=== PATIENT | female | born 1990 | race Caucasian/White ===

== ENCOUNTER 2019-04-06 05:45 | Inpatient (IN) | payer BC ==
[~2019-04-06] VITALS: Ht 167.7 cm; Wt 100.6 kg
[2019-04-06] VITALS (35 sets, daily range): BP systolic 110–150; BP diastolic 54–99
[2019-04-06] MEDS ORDERED: PREN1TAB79 PO (05:50)
[2019-04-06] MEDS ORDERED: OXYTOCIN/NORMAL SALINE 500 ML IV SCH ×2 (05:53→15:42)
--- NOTE | 2019-04-06 05:55 | NUR ---
JAMSHID HUNTER presented to unit via ambulation from ED, accompanied by SO, with c/o INDUCTION. JAMSHID HUNTER weighed, gowned, voided, and to bed. EFHM and TOCO applied, VS taken. JAMSHID HUNTER oriented to bed controls, call light, TV, heat, and A/C controls.
[2019-04-06] MEDS ORDERED: MINERAL OIL CONCENTRATE 99.9% 15 ML UDC TOP PRN (06:00)
[2019-04-06] MEDS ORDERED: D5 LR IV SOLUTION 1,000 ML IV ONE (06:03)
[2019-04-06] MEDS: D5 LR IV SOLUTION 1,000 ML IV SCH ×2 (06:30→13:37)
[2019-04-06] MEDS: CATHETER FLUSH 10 ML SYR IV SCH ×2 (06:51→22:32)
[2019-04-06 07:10] LABS: BASOPHILS % (AUTO) 0 % (0-10); EOSINOPHILS % (AUTO) 0 % (0-10); HEMATOCRIT 34 % (35-52); HEMOGLOBIN 11.7 G/DL (11.5-16.0); LYMPHOCYTES # (AUTO) 1.5 X 10^3 (1.0-4.0); LYMPHOCYTES % (AUTO) 15 % (12-44); MEAN CORPUSCULAR HEMOGLOBIN 29 PG (25-34); MEAN CORPUSCULAR HGB CONC 34 G/DL (32-36); MEAN CORPUSCULAR VOLUME 84 FL (80-99); MEAN PLATELET VOLUME 9.6 FL (7.4-10.4); MONOCYTES # (AUTO) 0.8 X 10^3 (0.0-1.0); MONOCYTES % (AUTO) 8 % (0-12); NEUTROPHILS # (AUTO) 7.5 X 10^3 (1.8-7.8); NEUTROPHILS % (AUTO) 77 % (42-75); PLATELET COUNT 228 10^3/uL (130-400); RED CELL DISTRIBUTION WIDTH 12.8 % (10.0-14.5); WHITE BLOOD COUNT 9.8 10^3/uL (4.3-11.0)
[2019-04-06] MEDS ORDERED: SUFENTA 0.6MCG/ML BUPIVA 0.125 100 ML ONE (07:27)
--- NOTE | 2019-04-06 08:07 | NUR ---
DR TREVINO NOTIFIED OF UNABLE TO REACH CERVIX. DR TREVINO AT BEDSIDE AND ATTEMPT SVE AT 0807. DR TREVINO ALSO UNABLE TO REACH CERVIX. DR WANT PT TO GET EPIDURAL PLACED AND THEN HE WILL RETURN AFTER EPIDURAL PLACEMENT FOR SVE AND POSSIBLE AROM.
[2019-04-06] MEDS ORDERED: fentaNYL INJECTION 100 MCG/2 ML AMP ONE ×3 (08:18→16:10)
--- NOTE | 2019-04-06 08:37 | History & Physical-OB/GYN ---
History of Present Illness History of Present Illness Reason for visit/HPI Ms. Cash, , at 39 2/7 weeks was admitted for Pitocin Induction of Labor. Date of Admission Apr 06, 2019 at 05:45 Date Seen by a Provider: Apr 06, 2019 Time Seen by a Provider: 07:35 I consulted on this patient on 04/06/19 08:32 Attending Physician Garrett San DO Admitting Physician Garrett San DO Consult Allergies and Home Medications Allergies Coded Allergies: cefaclor (Verified Allergy, Unknown, 04/06/19) Home Medications Vit W-Ca,Fe,FA(<1 mg) 1 Each Tablet, 1 EACH PO DAILY, (Reported) Patient Home Medication List Home Medication List Reviewed: Yes Past Uopmrto-Yewsku-Zomagt Hx Patient Social History Marrital Status: Number of Children: 0 Number of living children: 0 Employed/Student: employed Alcohol Use: Denies Use Recreational Drug Use: No Physical Abuse Screen: No Sexual Abuse: No Recent Foreign Travel: No Contact w/other who traveled: No Recent Hopitalizations: No Recent Infectious Disease Expo: No Seasonal Allergies Seasonal Allergies: Yes Surgeries Yes (wisdom [id number]) Respiratory No Cardiovascular No Neurological No Reproductive System Expected Date of Delivery: Apr 11, 2019 Genitourinary No Gastrointestinal No Musculoskeletal No Endocrine History of Endocrine Disorders: No HEENT History of HEENT Disorders: No Cancer No Psychosocial History of Psychiatric Problem: No Integumentary History of Skin or Integumenta: No Blood Transfusions History of Blood Disorders: No Family Medical History Family Hx: Hypertension 19 FATHER Review of Systems Constitutional: see HPI Physical Exam Physical Exam Vital Signs Vital Signs Date Time Temp Pulse Resp B/P (MAP) Pulse Ox O2 Delivery O2 Flow Rate FiO2 04/06/19 06:13 36.9 106 18 96 Room Air 04/06/19 06:12 36.9 106 18 138/81 (100) 96 Room Air Capillary Refill : Less Than 3 Seconds Labs Laboratory Tests 04/06/19 07:00: White Blood Count 9.8, Red Blood Count 4.06L, Hemoglobin 11.7, Hematocrit 34L, Mean Corpuscular Volume 84, Mean Corpuscular Hemoglobin 29, Mean Corpuscular Hemoglobin Concent 34, Red Cell Distribution Width 12.8, Platelet Count 228, Mean Platelet Volume 9.6, Neutrophils (%) (Auto) 77H, Lymphocytes (%) (Auto) 15, Monocytes (%) (Auto) 8, Eosinophils (%) (Auto) 0, Basophils (%) (Auto) 0, Neutrophils # (Auto) 7.5, Lymphocytes # (Auto) 1.5, Monocytes # (Auto) 0.8, Eosinophils # (Auto) 0.0, Basophils # (Auto) 0.0 General Appearance: No Apparent Distress, WD/WN Respiratory: Chest Non Tender, Lungs Clear, No Accessory Muscle Use Cardiovascular: Regular Rate, Rhythm, No Murmur Abdominal: normal bowel sounds, non tender Labia: WNL Vagina: WNL Extremity: Normal Capillary Refill, Normal Inspection, Non Tender Assessment/Plan Assessment and Plan Intrauterine at 39 2/7 weeks Plan: Pitocin Induction of Labor. Artificial rupture of membranes. Epidural anesthesia. Normal Spontaneous Vaginal Delivery expected Admission Diagnosis Admission Status: Inpatient Order (span 2 midnights) Reason for Inpatient Admission: Intrauterine at 39 2/7 weeks for Pitocin Induction of Labor Clinical Quality Measures DVT/VTE Risk/Contraindication: Risk Factor Score Per Nursin RFS Level Per Nursing on Admit: 1=Low/No VTE PPGARRETT ROTHMAN DO Apr 06, 2019 08:37 POS
--- NOTE | 2019-04-06 10:30 | NUR ---
THIS RN NOTIFIES DR TREVINO ON SITUATION/PT STATUS. HAVE BEEN TRYING TO PLACE EPIDURAL FOR ABOUT 1.5-2 HOURS. PT HAS SCHOLIOSIS, WHICH SEEMS TO BE CAUSING DIFFICULTY WITH PLACEMENT. PT HAS APPEARED TO HAVE 2 ANXIETY ATTACKS CAUSING ANESTHESIA TO STOP PROCEDURE BOTH TIMES. PT CO SHARP NECK PAIN, BODY SHAKING, HIGH ANXIETY. LETTING PT REST AT THIS TIME. EPIDURAL STILL NOT PLACED. PT UNABLE TO SIT UP AT THIS POINT DUE TO NECK PAIN. PITOCIN HAS NOT BEEN INCREASED A LOT DUE TO NOT BEING ABLE TO KEEP BABY ON THE MONITOR WELL DURING PROCEDURE. PITOCIN RATE ON 6 RIGHT NOW. ORDERS HAVE BEEN RECEIVED FOR ATIVAN AND STADOL TO HELP PT RELAX AND FOR PAIN.
[2019-04-06] MEDS ORDERED: BUTORPHANOL INJ 2 MG/ML (STADOL) VIAL ONE (10:38)
[2019-04-06] MEDS ORDERED: LORazepam INJ 2 MG/ML (ATIVAN) VIAL ONE (10:39)
[2019-04-06] MEDS ORDERED: LORazepam INJ 2 MG/ML (ATIVAN) VIAL IVP ONE (10:45)
--- NOTE | 2019-04-06 10:45 | NUR ---
Orders have been received to give Ativan to help pt relax as well as stadol for pain. Pt body shaking and appears very tense, unable to physically relax.
[2019-04-06] MEDS: BUTORPHANOL INJ 2 MG/ML (STADOL) VIAL IV PRN ×3 (10:53→11:56)
[2019-04-06] MEDS ORDERED: CYCLOBENZAPRINE 10 MG (FLEXERIL) TAB PO PRN (11:45)
--- NOTE | 2019-04-06 12:45 | NUR ---
0820 bebeto anna with anesthesia at bedside for epidural placement 0822 pt sitting on side of bed for epidural placement with help from this rn. 0833 local admin for epidural placement by bebeto anna, preforming procedure. Pt has scoliosis and has history of anxiety attacks noted on medical record. At 0917 pt began extremely anxious, started CO neck pain and chest pain, feeling like she couldnt breathe and asked to lay down, appearing to be having a anxiety attack. Procedure was stopped and sterile field torn down. pt laid down on her left side. BP 164/64. FHT monitored by this rn, rn remains at bedside. Pt turned to semi fowlers 0922. Wants to try epidural again after she calms down. 0928 Bebeto Meliton returns to bedside for another attempt at placing epidural. Pt has calmed down and is ready for procedure, states she feels better now knowing what to expect. 0932 pt placed in sitting position on side of bed with help form this rn. 0937 local admin by bebeto anna, preforming procedure. 0945 pt quickly became panicked, CO neck pain, starts moving and panicking, asking to lay back down. Pt appears to have another anxiety attack, procedure is DC'd and pt is laid back down immediately to her left side again. Pt continues to CO neck pain, remains very anxious, not understanding why her neck hurts. FHT monitored by this rn. this rn remains at bedside. warm pack offered and placed on neck in hopes to relieve tension/pain temporarily before pt removed warm pack, saying she didnt like it. 0955 Donato Reading with anesthesia at bedside to evaluate pt and discuss plan of care/ epidural procedure. pt states she Does want to try the epidural again because she does not want to labor with out one, however her neck still hurts. Pt states it is a shooting pain up her neck when she sitting up or tries to turn, only feels better when she is laying down. pt becomes extremely panicky when tried to move/ turn into a different position such as laying on her back or other side - she quickly grabs her neck on both sides, turning back to position. Pt laying on her left side currently. 1016 Donato Reading returns to bedside for evaluation.Pt wants to try to sit up but is unable to due to neck pain and quickly lays back down, groaning, holding neck. This RN will give Dr San an update on pt report.
--- NOTE | 2019-04-06 12:50 | NUR ---
1130 dr yu at bedside for assessment. pt attempt to turn to supine position for sve but is unable to due to neck pain. sve attempted by dr yu. unable to complete sve. order received to give Flexeril & Stadol. 1155 flexeril and stadol admin. 1210 pt is able to turn to semi fowlers. pt states she still is having neck pain but not as sharp as before in the supine position. 1250 dr yu returns to bedside for evaluation. attempt sve, unable to reach cervix. attempts to place bedpan under buttock for sve. pt unable to lift butt up due to sharp neck pain. pt then feels like she needs to turn off of her back to her side due t neck pain. dr yu then discusses plan of care with pt and calls a primary section for "maternal intolerance to labor".
[2019-04-06] MEDS ORDERED: LACTATED RINGERS 1,000 ML IV PRN (13:04)
--- NOTE | 2019-04-06 13:10 | Labor Progress Note ---
Labor Progress Note Labor Progress Note Date Seen by Provider: Apr 06, 2019 Time Seen by Provider: 12:45 Subjective: Ms. Cash is having trouble moving her neck without severe pain radiating through her body. She is unable to move in a way to be examined. We have been unable to examine Ms. Cash. Consequently, it was discussed with her and her that since we are unable to examine her that it is not safe to continue with Pitocin Induction. She is concerned about her neck and her baby--so, we are going to proceed with an immediate Objective: (Can we insert 24 hour vitals here?) Cervical exam: [] Consistency: [] Position: [] Presentation: [] heart tones: [130] beats per minute, [excellent] variability, reactive Tocometer: [] ctx/10 minutes Assessment/Plan: Katherine Cash is a (28 /Para / ,Gestational Age (wks)39 here for []. CEFM/TOCO Stop pitocin/[] Anesthesia: [] Proceed with an immediate secondary to uncontrolled maternal pain (neck pain since an attempted placement of Epidural). Procedure, risks and cayla efits were explained to Ms. Cash and her . All questions were answered. Informed consent was obtained. Vitals - Labs Vital Signs - I&O Vital Signs Date Time Temp Pulse Resp B/P (MAP) Pulse Ox O2 Delivery O2 Flow Rate FiO2 04/06/19 08:15 90 136/70 (92) 97 Room Air 04/06/19 08:00 95 133/88 (103) 98 Room Air 04/06/19 07:55 36.8 88 18 132/81 (98) 99 Room Air 04/06/19 06:13 36.9 106 18 96 Room Air 04/06/19 06:12 36.9 106 18 138/81 (100) 96 Room Air Labs Laboratory Tests 04/06/19 07:00: White Blood Count 9.8, Red Blood Count 4.06L, Hemoglobin 11.7, Hematocrit 34L, Mean Corpuscular Volume 84, Mean Corpuscular Hemoglobin 29, Mean Corpuscular Hemoglobin Concent 34, Red Cell Distribution Width 12.8, Platelet Count 228, M marina Platelet Volume 9.6, Neutrophils (%) (Auto) 77H, Lymphocytes (%) (Auto) 15, Monocytes (%) (Auto) 8, Eosinophils (%) (Auto) 0, Basophils (%) (Auto) 0, Neutrophils # (Auto) 7.5, Lymphocytes # (Auto) 1.5, Monocytes # (Auto) 0.8, Eosinophils # (Auto) 0.0, Basophils # (Auto) 0.0 THUY TREVINO DO Apr 06, 2019 13:10 POS
[2019-04-06] MEDS ORDERED: FAMOTIDINE 20MG/2ML IV (PEPCID) IV ONE (13:15)
[2019-04-06] MEDS ORDERED: CATHETER FLUSH 10 ML SYR IV PRN (13:15)
[2019-04-06] MEDS ORDERED: METOCLOPRAMIDE INJ 10 MG/2 ML (REGLAN) IV ONE (13:15)
[2019-04-06] MEDS ORDERED: CITRIC ACID/SOB CIT (BICITRA) 30 ML UDC PO ONE (13:15)
[2019-04-06] MEDS ORDERED: SUCCINYLCHOLINE INJ 100 MG/5 ML SYR ONE (14:14)
[2019-04-06] MEDS ORDERED: proPOfol 200 MG/20 ML (DIPRIVAN) VIAL IV ONE (14:14)
[2019-04-06] MEDS ORDERED: SEVOFLURANE (ULTANE) 15 ML INHAL SOLN ONE (14:14)
[2019-04-06] MEDS ORDERED: LIDOCAINE PF 2% 5 ML (XYLOCAINE) VIAL ONE (14:14)
--- NOTE | 2019-04-06 14:47 | NUR ---
pt is taken to OR by [facility] at this time via bed.
[2019-04-06] MEDS ORDERED: BUPIVACAINE 0.5% 30 ML (SENSORCAINE) VIAL ONE (15:23)
[2019-04-06] MEDS ORDERED: CLINDAMYCIN 900 MG/50 ML IVPB 50 ML IV NR (15:30)
[2019-04-06] MEDS ORDERED: MEASLES,MUMPS,RUBELLA 1 EA INJ SC SCH (15:45)
[2019-04-06] MEDS ORDERED: TETANUS,DIPTH,PERTUSS P/F (BOOSTRIX) 0.5 ML VIAL IM SCH (15:45)
[2019-04-06] MEDS ORDERED: fentaNYL INJECTION 100 MCG/2 ML AMP IVP PRN (15:45)
[2019-04-06] MEDS ORDERED: BISACODYL 10 MG SUPP (DULCOLAX) PR NR (15:45)
[2019-04-06] MEDS ORDERED: ONDANSETRON 4 MG/2 ML (SDV) Z0FRAN IVP PRN ×2 (15:45→16:15)
[2019-04-06] MEDS: KETOROLAC 30 MG/ML VIAL IV SCH ×2 (15:50→22:32)
--- NOTE | 2019-04-06 16:03 | Cesarean Section Operative ---
Procedure Procedure Note Pre-operative Diagnosis: Katherine Cash is jefry (28 /Para / ,Gestational Age (wks)39 2/7with [Severe Neck Pain (which prevented me from evaluating the patient properly (unable to do cervical examinations because of excruciating pain in her neck when she moved] Post-operative Diagnosis: same [] Procedure: [Primary] low transverse section Physician: THUY TREVINO Dual Hose Cementer: [None] Estimated blood loss: [500] mL Disposition: [Recovery Room] Findings: Viable []Female , Apgars [8, 9], weight [7 lb 1 oz], intact placenta, 3vc, normal appearing uterus, tubes, and ovaries. Indications:Katherine capps (28 year old /Para 1 /0 ,Gestational Age (wks)39 presenting for []. Procedure Details: The patient was seen in pre-op and the procedure was discussed with the patient in full, including the risks, benefits, and alternatives. All questions were answered. The patient was taken to the operating room and a time out was performed, verifying patient and procedure. After General anesthesia was administered, (the patient had previously been placed in the dorsal supine with leftward tilt for uterine displacement.~ Her abdomen was then prepped and draped in the typical sterile fashion. A Pfannenstiel skin incision was made using a scalpel and carried down through the underlying fascia. The fascia was incised in the midline and tented up using Nate clamps. On both the inferior and superior fascia side the rectus muscle was dissected off bluntly and sharply using Carbone scissors. The peritoneum was identified and entered bluntly in the midline. This was then stretched laterally using manual strength. After entering the abdominal cavity and confirming lack of intraperitoneal adhesions, a large Leroy retractor was placed and the lower uterine segment was visualized. A bladder flap was created with the use of Metzenbaum scissors.~ A scalpel was utilized to make a low transverse uterine incision. Amniotomy was performed with an Allis clamp with return of clear fluid. The infant's head was grasped and brought to the level of the incision. Fundal pressure was applied and was delivered without difficulty. Mouth and nares were suctioned with bulb suction. After the umbilical cord was clamped and cut, the was handed off to the pediatric staff, where NRP protocol was followed. A sample of cord blood was then obtained. The placenta was delivered intact via uterine massage. The uterus was ex teriorized and cleared of all clots and debris. The uterine incision was closed using 0 Vicryl in a running locked fashion. A second imbricating layer was placed using 0 Vicryl in a running fashion as well. Utilizing a 3-0 Vicryl, the bladder flap was reapproximated in a running fashion. The uterus was flexed forward and the posterior rectouterine space was inspected and cleared of all clots and debris. Again the hysterotomy site was examined and hemostasis was observed. The bilateral tubes and ovaries appeared normal, however the uterus was noted to have multiple uterine fibroids. The uterus was placed back into the abdominal cavity and abdominal gutters were cleared of all clots and debris. A final check of the uterine incision showed it to be hemostatic. The peritoneum was closed using 3-0 Vicryl in a running fashion. The fascia was closed with 0 Vicryl in a running fashion. The subcutaneous space was hemostatic, and irrigated. The subcutaneous space was closed with 3-0 Plain Gut in a running fashion. The skin was then closed using 4-0 Monocryl in a running subcuticular fashion. The skin edges were reapproximated together and were hemostatic. A pressure dressing was applied. All sponge, lap and needle counts were correct at the end of the procedure per nursing. Ms. Cash was taken to the Recovery Room in good and stable condition. Vitals - Labs Vital Signs - I&O Vital Signs Date Time Temp Pulse Resp B/P (MAP) Pulse Ox O2 Delivery O2 Flow Rate FiO2 04/06/19 08:15 90 136/70 (92) 97 Room Air 04/06/19 08:00 95 133/88 (103) 98 Room Air 04/06/19 07:55 36.8 88 18 132/81 (98) 99 Room Air 04/06/19 06:13 36.9 106 18 96 Room Air 04/06/19 06:12 36.9 106 18 138/81 (100) 96 Room Air Labs Laboratory Tests 04/06/19 07:00: White Blood Count 9.8, Red Blood Count 4.06L, Hemoglobin 11.7, Hematocrit 34L, Mean Corpuscular Volume 84, Mean Corpuscular Hemoglobin 29, Mean Corpuscular Hemoglobin Concent 34, Red Cell Distribution Width 12.8, Platelet Count 228, Mean Platelet Volume 9.6, Neutrophils (%) (Auto) 77H, Lymphocytes (%) (Auto) 15, Monocytes (%) (Auto) 8, Eosinophils (%) (Auto) 0, Basophils (%) (Auto) 0, Neutrophils # (Auto) 7.5, Lymphocytes # (Auto) 1.5, Monocytes # (Auto) 0.8, Eosinophils # (Auto) 0.0, Basophils # (Auto) 0.0 THUY TREVINO DO Apr 06, 2019 16:03 POS
[2019-04-06] MEDS ORDERED: fentaNYL INJECTION 100 MCG/2 ML AMP IVP ONE (16:15)
[2019-04-06] MEDS ORDERED: morphine INJ 10 MG/ML 1ML (SYR OR VIAL) IVP ONE (16:15)
[2019-04-06] MEDS ORDERED: MEPERIDINE (DEMEROL) INJ 50 MG/ML IVP ONE (16:15)
[2019-04-06] MEDS ORDERED: HYDROmorphone 2 MG/ML VIAL (DILAUDID) IV ONE (16:15)
[2019-04-06] MEDS: ACETAMINOPHEN 500 MG TAB (TYLENOL) PO SCH ×2 (18:03→23:32)
[2019-04-06] MEDS: DOCUSATE SODIUM 100 MG (COLACE) CAP PO SCH (20:33)
[2019-04-06] MEDS: METOCLOPRAMIDE 10 MG (REGLAN) TAB PO SCH (20:34)
[2019-04-06] MEDS ORDERED: CATHETER FLUSH 10 ML SYR IV SCH (22:00)
[2019-04-07] VITALS: BP 120/61
[2019-04-07] MEDS: METOCLOPRAMIDE 10 MG (REGLAN) TAB PO SCH ×4 (03:13→20:27)
[2019-04-07 04:00] VITALS: BP 115/67
[2019-04-07] MEDS ORDERED: MILK OF MAGNESIA 400 MG/5 ML 30 ML UDC PO NR (05:00)
[2019-04-07] MEDS: KETOROLAC 30 MG/ML VIAL IV SCH (05:47)
[2019-04-07] MEDS: CATHETER FLUSH 10 ML SYR IV SCH (05:47)
[2019-04-07 06:37] LABS: BASOPHILS % (AUTO) 0 % (0-10); EOSINOPHILS % (AUTO) 0 % (0-10); HEMATOCRIT 28 % (35-52); HEMOGLOBIN 9.9 G/DL (11.5-16.0); LYMPHOCYTES % (AUTO) 13 % (12-44); MEAN CORPUSCULAR HEMOGLOBIN 29 PG (25-34); MEAN CORPUSCULAR HGB CONC 35 G/DL (32-36); MEAN CORPUSCULAR VOLUME 83 FL (80-99); MEAN PLATELET VOLUME 9.4 FL (7.4-10.4); MONOCYTES # (AUTO) 1.4 X 10^3 (0.0-1.0); MONOCYTES % (AUTO) 9 % (0-12); NEUTROPHILS # (AUTO) 11.8 X 10^3 (1.8-7.8); NEUTROPHILS % (AUTO) 78 % (42-75); PLATELET COUNT 222 10^3/uL (130-400); WHITE BLOOD COUNT 15.2 10^3/uL (4.3-11.0)
[2019-04-07] MEDS: ACETAMINOPHEN 500 MG TAB (TYLENOL) PO SCH ×3 (06:37→20:27)
--- NOTE | 2019-04-07 07:00 | NUR ---
REPORT FROM SALAS HERRING.
--- NOTE | 2019-04-07 07:30 | NUR ---
DR CHENS HERE NO NEW ORDERS.
[2019-04-07] MEDS: DOCUSATE SODIUM 100 MG (COLACE) CAP PO SCH ×2 (08:13→20:27)
[2019-04-07 09:15] VITALS: BP 120/78
--- NOTE | 2019-04-07 09:15 | NUR ---
INITIAL ASSESSMENT COMPLETED, VSS, NO DISTRESS NOTED, PT DENIES C/O OR QUESTIONS AT THIS TIME, PT VERBALIZES UNDERSTANDING OF FOLLOW UP CARE AND INSTRUCTIONS.
[2019-04-07] MEDS: IBUPROFEN 800 MG (MOTRIN) TAB PO SCH ×3 (13:07→21:43)
[2019-04-07 13:41] VITALS: BP 108/58
--- NOTE | 2019-04-07 16:45 | Anesthesia-General Post-Op ---
General Patient Condition Mental Status/LOC: Same as Preop Cardiovascular: Satisfactory Nausea/Vomiting: Absent Respiratory: Satisfactory Pain: Controlled Complications: Absent Post Op Complications Complications None Follow Up Care/Instructions Patient Instructions None needed. Anesthesia/Patient Condition Patient Condition Patient is doing well, no complaints, stable vital signs, no apparent adverse anesthesia problems. She also had an attempted epidural catheter placement which was unsuccessful and patient did not wish to try again. She is having no headache and the stiff neck that she C/O yesterday has resolved. She is doing much better today, ambulating well. We will be available if needed. RUPINDER ARNETT DO Apr 07, 2019 16:45 POS
--- NOTE | 2019-04-07 17:30 | NUR ---
RUBELLA VACCINE GIVEN.
[2019-04-07 17:32] VITALS: BP 124/69
--- NOTE | 2019-04-07 19:30 | NUR ---
REPORT RECEIVED. ASSESSMENTS DONE. NO NEEDS AT THIS TIME.
--- NOTE | 2019-04-08 00:31 | NUR ---
PT SLEEPING SOUNDLY.
[2019-04-08 02:15] VITALS: BP 117/68
[2019-04-08] MEDS: ACETAMINOPHEN 500 MG TAB (TYLENOL) PO SCH ×2 (02:15→09:52)
[2019-04-08] MEDS: IBUPROFEN 800 MG (MOTRIN) TAB PO SCH (06:54)
[2019-04-08] MEDS: DOCUSATE SODIUM 100 MG (COLACE) CAP PO SCH (09:52)
--- NOTE | 2019-04-08 09:52 | NUR ---
initial shift assessment completed, see interventions for further. POC reviewed, states understanding.
--- NOTE | 2019-04-08 10:00 | NUR ---
dismissal instructions given, verbalizes understanding. reviewed follow up appointments and Rx's. Signature page signed, placed on chart.
--- NOTE | 2019-04-08 10:33 | NUR ---
Tdap given in Lt.deltoid. see eMar for further.
--- NOTE | 2019-04-08 10:45 | NUR ---
pt ambulated to private vehicle with NIM[employer] Patterson, and @ side. secured in rear facing car seat. pt stable upon dismissal.
[2019-04-08 15:16] VITALS: BP 123/72
--- NOTE | 2019-04-10 07:43 | Progress Note ---
Standard Progress Note Progress Notes/Assess & Plan Date Seen by a Provider: Apr 07, 2019 Time Seen by a Provider: 07:00 Progress/Assessment & Plan Subjective: Ms. Cash is Postoperative Day #1 from a Primary . Her only complaint is soreness. She states that the bleeding has slowed and breast feeding is going well. Objective: Vital signs stable Heart: Regular rate and rhythm without appreciable murmur Lungs: Clear to auscultation bilaterally with good respiratory effort Abdomen: Good bowel sounds, mild tenderness with palpation, incision is clean, dry and well approximated Extremities: No cyanosis or clubbing. +1 edema of lower extremities Neurological: Alert and oriented x 3, CN 2-12 grossly intact Assessment: Postoperative Day #1 from Primary Low Transverse Plan: Increase bowel function, then advance diet. Ambulate. Start oral pain medications. Keep incision clean and dry. If all remains stable, I will d ischarge Ms. Cash tomorrow. Final Diagnosis Intrauterine at 39 1/7 weeks 2. Maternal Intolerance to Labor (unable to move secondary to severe neck pain) THUY TREVINO DO Apr 10, 2019 07:43
--- NOTE | 2019-04-10 07:52 | Discharge Summary ---
Diagnosis/Chief Complaint Date of Admission Apr 06, 2019 at 05:45 Date of Discharge Apr 08, 2019 at 10:45 Discharge Date: Apr 08, 2019 Admission Diagnosis Admission Diagnosis Intrauterine at 39 1/7 weeks Discharge Diagnosis Intrauterine at 39 1/7 weeks 2. Maternal Intolerance to Labor Reason Hospital Visit Ms. Cash, , at 39 2/7 weeks was admitted for Pitocin Induction of Labor. Discharge Summary Hospital Course Was the Problem List Reviewed?: Yes Hospital Course Ms. Cash was admitted to the hospital for Pitocin Induction of labor. However, after an attempt at placement (a prolonged attempt), Ms. Cash experience severe neck pain that was exacerbated with movement. The pain was so severe she could not be moved in a position where her cervix could be evaluated. After pain medication and muscle relaxants were given that didn't help, it was decided that an alternate method had to be done--. This was based on my level of discomfort with trying to proceed with an induction without being able to evaluate Ms. Cash's cervix. The surgery was performed without complication, a healthy viable was delivered. On her day of surgery she was given medication and other comfort measures. Her day of surgery was unremarkable. Postoperative Day #1, Ms. Cash was started on oral pain medications and given medication to increase her bowel function. Postoperative Day #2 found ms. Cash ambulating, voiding, moving her bowels, tolerating a Regular Diet and controlling her pain with oral medications. Her vital signs remained stable throughout her hospitalization. The remainder of her hospitalization was unremarkable. She was discharged to home with instructions, prescriptions and a follow up appointment. Procedures None. Discharge Physical Examination Allergies: Coded Allergies: cefaclor (Verified Allergy, Unknown, 04/06/19) Vitals & I&Os Vital Signs Date Time Temp Pulse Resp B/P (MAP) Pulse Ox O2 Delivery O2 Flow Rate FiO2 04/08/19 15:16 37.1 107 18 123/72 (89) 98 Room Air 04/07/19 17:32 3.00 3.00 General Appearance: Alert, Oriented X3, Cooperative HEENT: Atraumatic Respiratory: Clear to Auscultation Cardiovascular: Regular Rate, No Murmurs Abdominal: Normal Bowel Sounds Extremities: No Clubbing, No Cyanosis Skin: No Rashes Neuro: Normal Gait, Normal Speech Psych/Mental Status: Mental Status NL Discharge Home Medications Reviewed and agree with Discharge Medication list on patient's Discharge Instruction sheet Instructions to Patient/Family Please see electronic discharge instructions given to patient. Clinical Quality Measures DVT/VTE Risk/Contraindication: Risk Factor Score Per Nursin RFS Level Per Nursing on Admit: 1=Low/No VTE PPX THUY TREVINO DO Apr 10, 2019 07:52
== END 2019-04-08 10:45 | disposition home or self-care (01) | DRG 788 ==
LOC: LDRP 05:45
PROVIDERS: ADMIT Obstetrics & Gynecology; ATTEND Obstetrics & Gynecology
PROC: 3E033VJ Introduction of Other Hormone into Peripheral Vein, Percutaneous Approach (ICD-10-PCS; 2019-04-06)
PROC: 10D00Z1 Extraction of Products of Conception, Low, Open Approach (ICD-10-PCS; principal; 2019-04-06 14:49)
DX: O26.893 Other specified pregnancy related conditions, third trimester (principal); M54.2 Cervicalgia; O34.13 Maternal care for benign tumor of corpus uteri, third trimester; D25.9 Leiomyoma of uterus, unspecified; Z37.0 Single live birth; Z3A.39 39 weeks gestation of pregnancy; Z23 Encounter for immunization
CPT/HCPCS: 36415; 85025; 86850; 86900; 86901; 87081; 90707; 90715; 94664